=== PATIENT | female | born 1990 | race American Indian/Alaskan Native ===

== ENCOUNTER 2018-09-27 09:52 | Emergency (ER) | payer MEDICAID ==
[2018-09-27 10:14] VITALS: BP 115/69
[2018-09-27] MEDS ORDERED: ROCEPHIN/NS 1 GM/50 ML 1 GM/50 ML BAG IV ONE (10:25)
[2018-09-27] MEDS ORDERED: NACL 0.9% 1000 ML 1,000 ML IV ONE (10:25)
[2018-09-27] MEDS ORDERED: MORPHINE IV ONE (10:25)
[2018-09-27] MEDS ORDERED: ZOFRAN ODT PO ONE (10:25)
--- NOTE | 2018-09-27 10:27 | Emergency Department Report ---
ED Burn/Smoke HPI - General Chief complaint: Burn/Smoke Inhalation Stated complaint: BURN/RT HAND Time Seen by Provider: 09/27/18 10:24 Source: patient Mode of arrival: Wheelchair Limitations: No Limitations - Related Data Previous Rx's Medication Instructions Recorded Last Taken Type Ibuprofen [Motrin] 800 mg PO Q8HR PRN #30 tablet 09/27/18 Unknown Rx Silver Sulfadiazine [Ssd] 400 gm TP BID #1 each 09/27/18 Unknown Rx cephALEXin [Keflex] 500 mg PO Q12HR #20 cap 09/27/18 Unknown Rx Allergies Allergy/AdvReac Type Severity Reaction Status Date / Time No Known Allergies Allergy Unverified 09/27/18 11:35 Burn HPI - History Stated Complaint: BURN/RT HAND Chief Complaint: Burn/Smoke Inhalation Time Seen by Provider: 09/27/18 10:24 - Home Meds and Allergies Home Medications: Previous Rx's Medication Instructions Recorded Last Taken Type Ibuprofen [Motrin] 800 mg PO Q8HR PRN #30 tablet 09/27/18 Unknown Rx Silver Sulfadiazine [Ssd] 400 gm TP BID #1 each 09/27/18 Unknown Rx cephALEXin [Keflex] 500 mg PO Q12HR #20 cap 09/27/18 Unknown Rx Allergies/Adverse Reactions: Allergies Allergy/AdvReac Type Severity Reaction Status Date / Time No Known Allergies Allergy Unverified 09/27/18 11:35 ED Review of Systems ROS: Stated complaint: BURN/RT HAND Other details as noted in HPI Comment: All other systems reviewed and negative ED Past Medical Hx - Past Medical History Previous Medical History?: No - Surgical History Past Surgical History?: No - Family History Family history: no significant - Social History Smoking Status: Never Smoker Substance Use Type: None - Medications Home Medications: Home Medications Medication Instructions Recorded Confirmed Last Taken Type Ibuprofen [Motrin] 800 mg PO Q8HR PRN #30 tablet 09/27/18 Unknown Rx Silver Sulfadiazine [Ssd] 400 gm TP BID #1 each 09/27/18 Unknown Rx cephALEXin [Keflex] 500 mg PO Q12HR #20 cap 09/27/18 Unknown Rx ED Physical Exam - General Limitations: No Limitations General appearance: alert - Head Head exam: Present: atraumatic - Eye Eye exam: Present: normal appearance - ENT ENT exam: Present: mucous membranes moist - Neck Neck exam: Present: normal inspection - Cardiovascular Cardiovascular Exam: Present: regular rate - GI/Abdominal GI/Abdominal exam: Present: soft - Extremities Exam Extremities exam: Present: tenderness - Back Exam Back exam: Present: normal inspection - Neurological Exam Neurological exam: Present: alert, oriented X3 - Psychiatric Psychiatric exam: Present: normal affect, normal mood ED Course Vital Signs 09/27/18 10:12 Temperature 97.9 F Pulse Rate 67 Respiratory 20 Rate Blood Pressure 115/69 O2 Sat by Pulse 100 Oximetry - Reevaluation(s) Reevaluation #1: 09/27/18 12:22 DR PRAKASH DOES NOT WANT PT TO BE DC WITH [facility]. [facility] FOR PAIN. ED Medical Decision Making - Medical Decision Making medicated for pain rocephin IV x 1 dose 1L NS wound care provided SSD dressing applied wound care instructions given tdap is up to date pt and understand they need to follow up with [facility] in AM for recheck. dc home with family and burn instructions. Critical care attestation.: If time is entered above; I have spent that time in minutes in the direct care of this critically ill patient, excluding procedure time. ED Disposition Clinical Impression: Burn Disposition: DC-01 TO HOME OR SELFCARE Is pt being admited?: No Does the pt Need Aspirin: No Condition: Stable Instructions: Superficial Burn (ED), Partial Thickness Burn (ED) Additional Instructions: WOUND CARE TWICE PER DAY INSTRUCTED PAIN MED ORDERED TODAY MAY TAKE WITH [facility] WELL KEEP HAND/ARM ELEVATED FOR COMFORT FOLLOW UP IN THE AM WITH THE [facility] FOR A RECHECK Prescriptions: cephALEXin [Keflex] 500 mg PO Q12HR #20 cap Ibuprofen [Motrin] 800 mg PO Q8HR PRN #30 tablet PRN Reason: Pain, Moderate (4-6) Silver Sulfadiazine [Ssd] 400 gm TP BID #1 each Referrals: [facility] [Outside] - 3-5 Days Time of Disposition: 12:09
[2018-09-27] MEDS ORDERED: THERMAZENE 50 GRAM TP ONE (11:00)
[2018-09-27] MEDS ORDERED: NORCO 10/325 PO ONE (12:14)
== END 2018-09-27 13:11 | disposition home or self-care (01) ==
LOC: ED 09:52
DX: T23.001A Burn of unspecified degree of right hand, unspecified site, initial encounter (principal); Z79.899 Other long term (current) drug therapy; X12.XXXA Contact with other hot fluids, initial encounter; Y93.89 Activity, other specified; Y92.89 Other specified places as the place of occurrence of the external cause; Y99.8 Other external cause status
CPT/HCPCS: 16000; 96365; 96375; 99283; J0696; J2270; J7030; Q0162